=== PATIENT | male | born 1970 | race Caucasian/White ===

== ENCOUNTER 2017-02-10 18:04 | Emergency (ER) | payer BC ==
[~2017-02-10] VITALS: Ht 177.8 cm; Wt 75.0 kg
[~2017-02-10 18:04] MED LIST: BENADRYL ALLERG25 MG PO; BUTALB-APAP-CA1 EACH PO; CLINDAMYCIN HC300 MG PO; DEXILANT60 MG PO; NICOTINE PATCH1 EAC2 TD; NORVASC10 MG PO; OMEPRAZOLE20 MG PO; OXYCODONE HCL10 MG PO; OXYCODONE HCL15 MG PO; OXYCONTIN30 MG PO; PANTOPRAZOLE SO40 MG PO; PREDNISONE10 MG PO; ZANTAC150 MG PO; ZEBUTAL 50-3251 EACH PO; ZOFRAN4 MG PO
[2017-02-10 18:42] LABS: ADD MIUA? NO; BILIRUBIN NEGATIVE; BLOOD NEGATIVE; COLOR YELLOW ((YELLOW)); GLUCOSE (STRIP) NEGATIVE; KETONES 5; LEUKOCYTES NEGATIVE; NITRITE NEGATIVE; PROTEIN (STRIP) NEGATIVE; SPECIFIC GRAVITY 1.027 (1.000-1.030); UROBILINOGEN 0.2 MG/DL (0.2-1.0)
[2017-02-10 19:18] LABS: EOSINOPHIL (%) 3.1 % (0-5); EOSINOPHIL COUNT 0.2 K/uL (0-0.3); HEMATOCRIT 41.6 % (38.0-50.0); IMMATURE GRANULOCYTE (%) 0.3 % (0.0-0.7); INSTRUMENT ABS NEUTROPHIL CT 3.4 K/uL; LYMPHOCYTE COUNT 1.9 K/uL (1.0-2.8); MCH 32.6 PG (29.0-34.0); MCHC 34.1 G/DL (30.0-36.0); MCV 95.6 FL (86-99); MEAN PLAT.VOLUME 9.6 uM^3 (9.0-12.4); MONOCYTE (%) 11.6 % (3-12); MONOCYTE COUNT 0.7 K/uL (0-0.8); NEUTROPHIL (%) 54.5 % (45-76); NEUTROPHIL COUNT 3.4 K/uL (1.8-6.4); PLATELET COUNT 242 K/uL (156-360); RBC DIS.WIDTH-CV 11.7 % (11.8-14.6); RBC DIS.WIDTH-SD 41.3 % (39-53); RED BLOOD COUNT 4.35 M/uL (4.00-5.50); WHITE BLOOD COUNT 6.2 K/uL (4.1-10.2)
[2017-02-10 19:27] LABS: CHLORIDE 105 mEq/L (99-109); POTASSIUM 3.9 mEq/L (3.7-5.4); SODIUM 138 mEq/L (136-147)
[2017-02-10 19:29] LABS: GLUCOSE 77 mg/dL (70-99)
[2017-02-10 19:31] LABS: ANION GAP 10 MEQ/L (2-14); TOTAL BILIRUBIN 0.2 mg/dL (0.0-1.0)
[2017-02-10 19:33] LABS: ALKALINE PHOSPHATASE 91 IU/L (3-129); GFR ESTIMATE (CALCULATED) > 59 mL/min/
[2017-02-10 19:34] LABS: UREA NITROGEN (BUN) 17 mg/dL (9-23)
[2017-02-10 19:36] LABS: LIPASE 21 U/L (1.0-51.0)
[2017-02-10] MEDS ORDERED: PERCOCET 5/31 TABLET PO (19:44)
[2017-02-10] MEDS ORDERED: ZOFRAN ODT4 MG PO (19:44)
[2017-02-10] MEDS ORDERED: CITRATE OF MAG296 ML PO (19:44)
[2017-02-10 20:18] VITALS: BP 155/90
== END 2017-02-10 20:19 | disposition home or self-care (01) ==
LOC: RME 18:04 → EME 18:04 → RME 20:19
PROVIDERS: Physician Assistant
DX: R10.11 Right upper quadrant pain (principal); R11.0 Nausea; K59.00 Constipation, unspecified; K82.8 Other specified diseases of gallbladder; Z98.1 Arthrodesis status; I10 Essential (primary) hypertension; F17.200 Nicotine dependence, unspecified, uncomplicated
CPT/HCPCS: 74022; 76705; 80053; 81003; 83690; 85025; 99281; 99284

== ENCOUNTER → 2017-03-21 | Outpatient (CLI) | payer BC ==
[~2017-03-21] MED LIST changes: +CITRATE OF MAG296 ML PO; +PERCOCET 5/31 TABLET PO; +ZOFRAN ODT4 MG PO
== END | disposition home or self-care (01) ==
LOC: NUC 09:34
DX: R10.11 Right upper quadrant pain (principal); R11.2 Nausea with vomiting, unspecified; R19.7 Diarrhea, unspecified; R63.0 Anorexia; R63.4 Abnormal weight loss; M94.0 Chondrocostal junction syndrome [Tietze]
CPT/HCPCS: 78226; A9537